=== PATIENT | male | born 1960 ===

== ENCOUNTER 2021-12-11 20:56 | Emergency (ER) | payer OTHER ==
[~2021-12-11] VITALS: Ht 175.3 cm; Wt 72.6 kg
[~2021-12-11 20:56] MED LIST: HUMALOG100 U/ML; LANTUS100 U/ML
[2021-12-11] MEDS ORDERED: GLIMEPIRIDE2 M1 (21:05)
[2021-12-12] MEDS ORDERED: MUPIROCIN1 G1 TOP (01:28)
[2021-12-12] MEDS ORDERED: AMOX-CLAV 875-1 EACH PO (01:28)
== END 2021-12-12 01:52 | disposition home or self-care (01) ==
LOC: ER 20:56
DX: S91.155A Open bite of left lesser toe(s) without damage to nail, initial encounter (principal); W54.0XXA Bitten by dog, initial encounter; Y93.89 Activity, other specified; Y92.018 Other place in single-family (private) house as the place of occurrence of the external cause; E11.9 Type 2 diabetes mellitus without complications; Z79.4 Long term (current) use of insulin